=== PATIENT | female | born 1955 | race Caucasian/White ===

== ENCOUNTER 2019-08-21 19:21 | Emergency (ER) | payer MEDICARE, OTHER ==
[~2019-08-21] VITALS: Ht 160 cm; Wt 114.8 kg
[~2019-08-21 19:21] MED LIST: ALBU108A5 IN; ALPR0.5T7 PO; ASPI81CH43 PO; ATEN-60 PO; ATOR20TA50 PO; CETI10TA80 PO; CIP500T PO; DOCU100C8 PO; FUR20T PO; FURO20TA3 PO; LISI40TA PO; LOSA-39 PO; LOSA-69 PO; METO25TA5 PO; OMEP20TA PO; POTA-167 PO; SIMV-8 PO; TIOTCAP IN
[2019-08-22] MEDS ORDERED: cloNIDine HCL 0.1 MG TAB PO ONE (01:00)
[2019-08-22 01:26] LABS: Urine WBC None Seen /hpf (0 - 5)
[2019-08-22 01:36] LABS: Basophils # (auto) 0 uL; Basophils % (auto) 0.4 % (0.0-2.0); Eosinophils # (auto) 0 uL; Eosinophils % (auto) 0.5 % (0.0-7.0); Hematocrit 37.9 % (36.0-46.0); Lymphocytes # (auto) 0.4 uL; Lymphocytes % (auto) 8.8 % (10.0-50.0); Mean Corpuscular Hemoglobin 33.1 pg (28.0-32.0); Mean Corpuscular Hgb Conc. 34.4 g/dL (32.0-36.0); Mean Corpuscular Volume 96.3 fL (80.0-100.0); Monocytes # (auto) 0.8 uL; Monocytes % (auto) 17.5 % (0.0-12.0); Neutrophils # (auto) 3.3 uL; Neutrophils % (auto) 72.8 % (37.0-80.0); Platelet Count (auto) 230 10^3/uL (140-450); Red Blood Cells 3.94 10^6/uL (4.0-5.20); Red Cell Distribution Width 13.5 % (11.8-14.3); White Blood Cell 4.5 10^3/uL (4.4-10.8)
[2019-08-22 01:57] LABS: Albumin 3.4 g/dL (3.4-5.0); BUN/Creatinine Ratio 12.5; Calcium 9.2 mg/dL (8.5-10.1); Potassium 3.4 mmol/L (3.5-5.1)
[2019-08-22 02:00] LABS: Bilirubin, Total 0.4 mg/dL (0.2-1.0); Total Protein 7.6 g/dL (6.4-8.2)
[2019-08-22 02:10] VITALS: BP 148/70
[2019-08-22 02:48] LABS: Urine Specific Gravity 1.041 (1.001-1.035)
[2019-08-22 02:49] LABS: Urine Blood Normal /uL (Negative)
[2019-08-22 02:49] LABS: INR 1.03 (0.9-1.15)
[2019-08-22 02:50] LABS: Urine Bacteria FEW /hpf (None Seen)
== END 2019-08-22 03:52 | disposition home or self-care (01) ==
LOC: ER 19:21
DX: F41.1 Generalized anxiety disorder (principal); F43.0 Acute stress reaction; J44.9 Chronic obstructive pulmonary disease, unspecified; E78.5 Hyperlipidemia, unspecified; I10 Essential (primary) hypertension
CPT/HCPCS: 36415; 71045; 80053; 81001; 83605; 83880; 84484; 85025; 85610; 85730; 87040

== ENCOUNTER 2024-09-08 01:43 | Inpatient (IN) | payer MEDICARE, OTHER ==
[2024-09-08] VITALS (11 sets, daily range): BP systolic 116–137; BP diastolic 56–76; PULSE 64–93; RESP 18–20; TEMP 97.4–98; O2SAT 93–99
[~2024-09-08] VITALS: Ht 157.5 cm; Wt 120.7 kg
[~2024-09-08 01:43] MED LIST changes: -ALPR0.5T7 PO; -ATEN-60 PO; -CETI10TA80 PO; +DOCU-265 PO; -DOCU100C8 PO; -FUR20T PO; -FURO20TA3 PO; +FURO20TA4 PO; -LISI40TA PO; -LOSA-39 PO; +LOSA-534 PO; -LOSA-69 PO; -OMEP20TA PO; -POTA-167 PO; +POTA-211 PO; -SIMV-8 PO
--- NOTE | 2024-09-08 02:15 | ED.PDOC ---
SOB-HPI HPI Comments 69 year old female presents to the ED with a chief complaint of shortness of breath onset 5 days. Patient states she began experiencing cough and shortness of breath days ago, went to urgent care, was diagnosed with Bronchitis and was prescribed antibiotics as well as prednisone and an inhaler. Patient has been taking medication but has not noticed an improvement. Patient was laying down when she noticed SOB, cough and wheezing worsened. PMHx CHF, COPD, asthma, anxiety, HTN, HLD. Denies fever, chest pain, dizziness, headache, nausea, vomiting, diarrhea. No other symptoms or modifying factors present at this time. Time Seen by MD: 02:08 Primary Care Provider: AGATA Garcia notes: Medications, Allergies Information Source: Patient Mode of Arrival: Ambulatory Severity: Moderate Timing: Days Duration: Since onset PE Risk Factors: None History of: Asthma, COPD, CHF, Anxiety Prehospital treatment: Treatment Modifying Factors: Nothing Associated Signs and Symptoms: Wheeze, Cough Radiation: No Radiation If cough with SOB: Productive Past Medical History PAST MEDICAL HISTORY: Anxiety, Asthma, CHF, COPD, High Lipids, HTN Surgical History (Other): cardiac stent x2 DIRECTOR MICROBIOLOGY History: No Pertinent DIRECTOR MICROBIOLOGY History Family History Family History: Reviewed,noncontributory to illness Social History Smoker: Non-Smoker Alcohol: Denies ETOH Use Drugs: Denies Drug Use Lives In: Home Constitutional: denies: chills, diaphoresis, fatigue, fever, malaise, sweats, weakness, others EENTM: denies: blurred vision, double vision, ear bleeding, ear discharge, ear drainage, ear pain, ear ringing, eye pain, eye redness, hearing loss, mouth pain, mouth swelling, nasal discharge, nose bleeding, nose congestion, nose pain, photophobia, tearing, throat pain, throat swelling, voice changes, others Respiratory: reports: cough, shortness of breath, wheezing; denies: hemoptysis, orthopnea, SOB at rest, SOB with excertion, stridor, others Cardiovascular: denies: chest pain, dizzy spells, diaphoresis, Dyspnea on exertion, edema, irregular heart beat, left arm pain, lightheadedness, palpitations, PND, syncope, others Gastrointestinal: denies: abdomen distended, abdominal pain, blood streaked bowels, constipated, diarrhea, dysphagia, difficulty swallowing, hematemesis, melena, nausea, poor appetite, poor fluid intake, rectal bleeding, rectal pain, vomiting, others Genitourinary: denies: abnormal vagina bleeding, burning, dyspareunia, dysuria, flank pain, frequency, hematuria, incontinence, pain, , vagina discharge, urgency, others Neurological: denies: dizziness, fainting, headache, left sided numbness, left sided weakness, numbness, paresthesia, pre-existing deficit, right sided numbness, right sided weakness, seizure, speech problems, tingling, tremors, weakness, others Musculoskeletal: denies: back pain, gout, joint pain, joint swelling, muscle pain, muscle stiffness, neck pain, others Integumetry: denies: bruises, change in color, change in hair/nails, dryness, laceration, lesions, lumps, rash, wounds, others Allergic/Immunocompromised: denies: Difficulty Healing, Frequent Infections, Hives, Itching, others Hematologic/Lymphatic: denies: anemia, blood clots, easy bleeding, easy bruising, swollen glands, others Endocrine: denies: excessive hunger, excessive sweating, excessive thirst, excessive urination, flushing, intolerance to cold, intolerance to heat, unexplained weight gain, unexplained weight loss, others Psychiatric: denies: anxiety, bipolar disorder, depression, hopeless, panic disorder, schizophrenia, sleepless, suicidal, others All Other Systems: Reviewed and Negative Physical Exam General Appearance: No Apparent Distress, Obese HEENT: Other (Unremarkable) Neck: Full Range of Motion, Normal Inspection Respiratory: No Accessory Muscle Use, No Respiratory Distress, Wheezing Cardiovascular: NOT DONE Breast Exam: Deferred Gastrointestinal: Non Tender, Soft Genitalia: Deferred Pelvic: Deferred Rectal: Deferred Extremities: Normal inspection, Normal range of motion, Non-tender, No pedal edema Neurologic: Alert (Oriented x4), Normal Affect, Normal Mood, Other (Ambulatory without difficulty. No gross focal deficit.) Cerebellar Function: NOT DONE Reflexes: NOT DONE Skin: Dry, Normal Color, Warm Lymphatic: NOT DONE EKG EKG : Comments Sinus rhythm, rate 66, normal intervals, left axis deviation, low voltage precordial leads, anteroseptal and lateral T inversion with other nonspecific T changes Was a procedure done? Was a procedure done?: No Differential Dx Differential Diagnosis: Asthma, Bronchitis, CHF, COPD, Myocardial infarction, Panic Attack, Pneumonia, Pulmonary Embolism, Respiratory Distress, URI X-Ray, Labs, Meds, VS Vital Signs Date Time Temp Pulse Resp B/P (MAP) Pulse Ox O2 Delivery O2 Flow Rate FiO2 09/08/24 02:30 66 09/08/24 02:23 18 95 Room Air* 0 21 09/08/24 01:51 97.4 79 18 147/73 (97) 97 09/08/24 01:51 18 97 Room Air* 0 21 Lab Test 09/08/24 03:50 09/08/24 02:34 Range/Units Troponin I High Sensitivity < 3 L < 3 L </=34 ng/L White Blood Count 8.8 4.4-10.8 10^3/uL Red Blood Count 4.09 4.0-5.20 10^6/uL Hemoglobin 13.7 12.2-16.2 g/dL Hematocrit 40.5 36.0-46.0 % Mean Corpuscular Volume 98.9 80.0-100.0 fL Mean Corpuscular Hemoglobin 33.4 H 28.0-32.0 pg Mean Corpuscular Hemoglobin Concent 33.8 32.0-36.0 g/dL Red Cell Distribution Width 14.1 11.8-14.3 % Platelet Count 269 140-450 10^3/uL Mean Platelet Volume 7.9 6.9-10.8 fL Neutrophils (%) (Auto) 79.0 37.0-80.0 % Lymphocytes (%) (Auto) 17.2 10.0-50.0 % Monocytes (%) (Auto) 3.4 0.0-12.0 % Eosinophils (%) (Auto) 0.0 0.0-7.0 % Basophils (%) (Auto) 0.4 0.0-2.0 % Neutrophils # (Auto) 7.0 1.6-8.6 10 ^3/uL Lymphocytes # (Auto) 1.5 0.4-5.4 10 ^3/uL Monocytes # (Auto) 0.3 0-1.3 10 ^3/uL Eosinophils # (Auto) 0 0-0.8 10 ^3/uL Basophils # (Auto) 0 0-0.2 10 ^3/uL Nucleated Red Blood Cells 0.0 % Sodium Level 139 136-145 mmol/L Potassium Level 3.6 3.5-5.1 mmol/L Chloride Level 103 98-107 mmol/L Carbon Dioxide Level 27 20-31 mmol/L Anion Gap 9 5-15 Blood Urea Nitrogen 11 9-23 mg/dL Creatinine 1.09 H 0.550-1.02 mg/dL Glomerular Filtration Rate Calc 55 >90 mL/min BUN/Creatinine Ratio 10.1 10.0-20.0 Serum Glucose 126 H 74-106 mg/dL Calcium Level 10.3 8.7-10.4 mg/dL B-Type Natriuretic Peptide 49.51 0-100 pg/mL Current Medications Medications (Trade) Dose Ordered Sig/Manish Route Start Time Stop Time Status Last Admin Albuterol (Ventolin Medneb) 2.5 mg ONCE ONCE NEB 09/08/24 02:30 09/08/24 02:31 DC 09/08/24 02:23 Ipratropium [place] (Atrovent Medneb) 0.5 mg ONCE ONCE NEB 09/08/24 02:30 09/08/24 02:31 DC 09/08/24 02:22 Methylprednisolone Sodium Succinate (Solu Medrol) 125 mg ONCE ONCE IV 09/08/24 02:30 09/08/24 02:31 DC 09/08/24 02:55 Azithromycin 250 ml @ 125 mls/hr ONCE ONCE IV 09/08/24 03:45 09/08/24 05:44 09/08/24 04:11 PROCEDURE(s): CXRP - CHEST PORTABLE REASON: SOB, COUGH X 5 DAYS ORDER NUMBER(s): [id number], ACCESSION NUMBER(s): [id number] Examination: CXRP Clinical Indication: SOB, COUGH X 5 DAYS Comparison: None. Technique: Frontal radiograph of the chest was obtained. Findings: Lungs are clear and well expanded, with no pulmonary infiltrate or pleural effusion. There is no pneumothorax. The cardiomediastinal silhouette is within normal limits. No acute osseous abnormality is seen. Impression: No acute cardiopulmonary disease is seen. Electronically Signed 09/08/2024 03:06 Melodie Becker X-Ray, Labs, Meds, VS Comment 69-year-old female with a history of COPD/asthma, CHF, hypertension, CAD and prediabetes complaining of productive cough and difficulty breathing, associated with wheezing when lying down flat Vitals remarkable for BP 147/73, temperature 97.4 Exam remarkable for scattered expiratory wheezes bilaterally Rhythm strip independently interpreted by me: Sinus rhythm, rate 66, no ectopy. Chest x-ray no acute cardiopulmonary disease CBC, basic metabolic panel, BNP and troponin unremarkable. Influenza and COVID tests pending. Patient treated with the following in the ED: Albuterol 5 mg/Atrovent 0.5 mg nebulized, Solu-Medrol 125 mg IV On re-evaluation, patient states her breathing has improved, however she is uncomfortable being discharged home. She states that I can tell by my voice that as soon as I lie down I will not be able to breathe. Plan is to admit the patient for ongoing nebulizer treatments and respiratory support as needed. Time of 1ST Reevaluation: 02:38 Reevaluation 1ST: Unchanged Patient Education/Counseling: Diagnosis, Treatment, Prognosis Family Education/Counseling: No Family Present Departure 1 Departure Time of Disposition: 03:41 Impression: Primary Impression: Acute exacerbation of COPD with asthma Additional Impression: Bronchitis Disposition: 09 ADMITTED INPATIENT Admit to: Tele Condition: Guarded Critical Care Note Critical Care Time?: No Stability Stability form required: No Heart Score Heart Score: Heart Score Response (Comments) Value History N/A 0 EKG N/A 0 Age N/A 0 Risk Factors N/A 0 Troponin N/A 0 Total 0 I personally scribed for LOWELL CASTELLON MD ([email or web address]) on 09/08/24 at 02:15. Electronically submitted by Kaur Maguire ([email or web address]). LOWELL CASTELLON MD Sep 08, 2024 02:15
[2024-09-08] MEDS: IPRATROPIUM BROM 0.5 MG/2.5ML INH SOL NEB ONE (02:22)
[2024-09-08] MEDS: ALBUTEROL SULF 2.5 MG/0.5ML(0.5%) NEB SOLN NEB ONE (02:23)
--- NOTE | 2024-09-08 02:34 | ECG ---
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
[2024-09-08 02:54] LABS: Chloride 103 mmol/L (98-107); Potassium 3.6 mmol/L (3.5-5.1); Sodium 139 mmol/L (136-145)
[2024-09-08 02:55] LABS: Anion Gap 9 (5-15); Carbon Dioxide 27 mmol/L (20-31)
[2024-09-08] MEDS: methylPREDNISolone SOD SUCC 125 MG/2 ML VL IV ONE (02:55)
[2024-09-08 02:56] LABS: Calcium 10.3 mg/dL (8.7-10.4)
[2024-09-08 02:57] LABS: Basophils # (auto) 0 10 ^3/uL (0-0.2); Basophils % (auto) 0.4 % (0.0-2.0); Eosinophils # (auto) 0 10 ^3/uL (0-0.8); Hematocrit 40.5 % (36.0-46.0); Hemoglobin 13.7 g/dL (12.2-16.2); Lymphocytes # (auto) 1.5 10 ^3/uL (0.4-5.4); Lymphocytes % (auto) 17.2 % (10.0-50.0); Mean Corpuscular Hemoglobin 33.4 pg (28.0-32.0); Mean Corpuscular Hgb Conc. 33.8 g/dL (32.0-36.0); Mean Corpuscular Volume 98.9 fL (80.0-100.0); Monocytes # (auto) 0.3 10 ^3/uL (0-1.3); Monocytes % (auto) 3.4 % (0.0-12.0); Platelet Count (auto) 269 10^3/uL (140-450); Red Blood Cells 4.09 10^6/uL (4.0-5.20); Red Cell Distribution Width 14.1 % (11.8-14.3); White Blood Cell 8.8 10^3/uL (4.4-10.8)
[2024-09-08 03:00] LABS: BUN/Creatinine Ratio 10.1 (10.0-20.0); Blood Urea Nitrogen 11 mg/dL (9-23)
--- NOTE | 2024-09-08 03:08 | DVH ---
Examination: CXRP Clinical Indication: SOB, COUGH X 5 DAYS Comparison: None. Technique: Frontal radiograph of the chest was obtained. Findings: Lungs are clear and well expanded, with no pulmonary infiltrate or pleural effusion. There is no pne umothorax. The cardiomediastinal silhouette is within normal limits. No acute osseous abnormality is seen. Impression: No acute cardiopulmonary disease is seen. Electronically Signed 09/08/2024 03:06 Melodie Becker
[2024-09-08 03:24] LABS: Glucose 126 mg/dL (74-106)
[2024-09-08] MEDS: AZITHROMYCIN 500MG/ 250ML 250 ML IV ONE (04:11)
--- NOTE | 2024-09-08 06:34 | DVHHPRES ---
History of Present Illness Resident Creating Document: FRANCIS LORENZANA RESDIENT History of Present Illness This is a 69-year-old female with past medical history of COPD, sleep apnea (on CPAP during the night with 1 L of oxygen), CHF, coronary artery disease, status post PCI (put 2 stents 2 months back), hypertension, hypercholesterolemia, CKD 3A, fatty liver disease, presented to hospital with shortness of breaths since 5 days which has progressively worsened. Patient has taken antibiotic, prednisone and inhaler from urgent care for current condition which has not helped. Shor tness of breaths is associated with dry cough and wheezing. Patient denies fever, chest pain, nausea, vomiting, headache, and any recent sick contact. PMHx: COPD, sleep apnea (on CPAP during the night with 1 L of oxygen), CHF, coronary artery disease, status post PCI (put 2 stents 2 months back), hypertension, hypercholesterolemia, CKD 3A, fatty liver disease PSHx: Noncontributory Family history: Noncontributing Social history: Patient lives with the family at home, ex-smoker, denies alcohol or any other drug use Review of Systems Review of Systems General: patient denies fever, fatigue, weaknes, sweating, any recent changes in appetite and weight HEENT: No headaches, visiual changes, hearing loss, tinnitus, nasal congestion and discharge, and sore throat. Cardiovascular: Denies chest pain, palpitations, dyspnea on exertion, orthopnea, or claudication. Respiratory: Reports shortness of breath, cough and wheezing Gastrointestinal: Denies nausea, vomiting, dysphagia, odynophagia, heartburn, abdominal pain, flatulence, bloating, diarrhea, constipation, change in stool, or blood in stool. Genitourinary: No dysuria, hematuria, discharge, frequency, urgency, nocturia, incontinence, and urinary retention. Endocrine: No heat or cold intolerance, polydipsia, polyuria, and polyphagia. Neurological: No dizziness, extremity weakness and numbness, tremors, gait disturbance, seizures, and memory impairment. Psychiatric: Denies depression, anxiety,or insomnia. Musculoskeletal: Denies neck pain, stiffness and swelling, back pain, muscle weakness, joint pain, stiffness, swelling, or limited range of motion. Allergies: Coded Allergies: Iodine (Verified Allergy, Unknown, 08/18/19) Medications Current Medications Medications Dose Ordered Sig/Manish Route Start Time Stop Time Status Last Admin Dose Admin Azithromycin 250 ml @ 125 mls/hr DAILY IV 09/08/24 10:00 UNV Methylprednisolone Sodium Succinate 40 mg BID IV 09/08/24 10:00 UNV Albuterol 2.5 mg Q6HR NEB 09/08/24 12:00 UNV Ipratropium [place] 0.5 mg Q6HR NEB 09/08/24 12:00 UNV Aspirin 81 mg DAILY PO 09/08/24 10:00 UNV Atorvastatin Calcium 40 mg HS PO 09/08/24 22:00 UNV Amlodipine Besylate 10 mg DAILY PO 09/08/24 10:00 UNV Furosemide 40 mg DAILY IV 09/08/24 10:00 UNV Pantoprazole Sodium 40 mg DAILY@0600 PO 09/09/24 06:00 UNV Exam Vital Signs Vital Signs Date Time Temp Pulse Resp B/P (MAP) Pulse Ox O2 Delivery O2 Flow Rate FiO2 09/08/24 02:30 66 09/08/24 02:23 18 95 Room Air* 0 21 09/08/24 01:51 97.4 147/73 (97) Exam General Appearance: Alert, Oriented X3, Cooperative, No acute distress HEENT: Atraumatic, PERRLA, EOMI, Mucous membrane moist/pink Respiratory: Bilateral rhonchi Cardiovascular: Regular rate, Normal S1, Normal S2, No murmurs, no chest wall tenderness Abdominal: Normal bowel sounds, Soft, No tenderness, No hepatospenomegaly, No masses Extremities: No clubbing, No cyanosis, No edema, Normal pulses, No tenderness/swelling Skin: No rashes, No breakdown, No significant lesion Neuro: Normal gait, Normal speech, Strength at 5/5 X4 ext, Normal tone, Sensation intact, Cranial nerves 3-12 NL, Reflexes 2+ Psych/Mental Status: Mental status NL, Mood NL Labs/Xrays Labs Test 09/08/24 03:50 09/08/24 02:34 Range/Units Troponin I High Sensitivity < 3 L </=34 ng/L White Blood Count 8.8 4.4-10.8 10^3/uL Red Blood Count 4.09 4.0-5.20 10^6/uL Hemoglobin 13.7 12.2-16.2 g/dL Hematocrit 40.5 36.0-46.0 % Mean Corpuscular Volume 98.9 80.0-100.0 fL Mean Corpuscular Hemoglobin 33.4 H 28.0-32.0 pg Mean Corpuscular Hemoglobin Concent 33.8 32.0-36.0 g/dL Red Cell Distribution Width 14.1 11.8-14.3 % Platelet Count 269 140-450 10^3/uL Mean Platelet Volume 7.9 6.9-10.8 fL Neutrophils (%) (Auto) 79.0 37.0-80.0 % Lymphocytes (%) (Auto) 17.2 10.0-50.0 % Monocytes (%) (Auto) 3.4 0.0-12.0 % Eosinophils (%) (Auto) 0.0 0.0-7.0 % Basophils (%) (Auto) 0.4 0.0-2.0 % Neutrophils # (Auto) 7.0 1.6-8.6 10 ^3/uL Lymphocytes # (Auto) 1.5 0.4-5.4 10 ^3/uL Monocytes # (Auto) 0.3 0-1.3 10 ^3/uL Eosinophils # (Auto) 0 0-0.8 10 ^3/uL Basophils # (Auto) 0 0-0.2 10 ^3/uL Nucleated Red Blood Cells 0.0 % Sodium Level 139 136-145 mmol/L Potassium Level 3.6 3.5-5.1 mmol/L Chloride Level 103 98-107 mmol/L Carbon Dioxide Level 27 20-31 mmol/L Anion Gap 9 5-15 Blood Urea Nitrogen 11 9-23 mg/dL Creatinine 1.09 H 0.550-1.02 mg/dL Glomerular Filtration Rate Calc 55 >90 mL/min BUN/Creatinine Ratio 10.1 10.0-20.0 Serum Glucose 126 H 74-106 mg/dL Calcium Level 10.3 8.7-10.4 mg/dL B-Type Natriuretic Peptide 49.51 0-100 pg/mL Assessment/Plan Assessment/Plan Acute COPD exacerbation Acute pneumonitis Sleep apnea check influenza type a, B, MRSA naris Methylprednisolone 40 mg b.i.d. Azithromycin Breathing treatment CPAP during the night Possible Acute on chronic systolic heart failure Hypertension History of coronary artery disease, put 2 stent, 2 months back Patient has bilateral grade 2 pedal edema Echocardiogram from 2019, shows some fraction 70% Check echo Lasix 40 mg daily Continue losartan Continue aspirin and clopidogrel CKD grade 3A Dyslipidemia Continue atorvastatin Next DIET: Cardiac diet DVT PROPHYLAXIS: Lovenox GI PROPHYLAXIS:: Protonix CODE STATUS: Left care discussed for more than 21 minutes, full code DISPOSITION: Med/surg Patient's status discussed with patient. Case discussed with Dr. Ceja. Plan discussed with: Patient, Other (RN) My Orders Orders - FRANCIS LORENZANA RESDITERESA Procedure Category Date Status Time Admit ADMIT 09/08/24 Transmitted 06:18 Stat Ekg For Chest BECKY 09/08/24 In Process Pain 06:18 Rapid Influenza A&B LAB 09/08/24 Logged 06:19 Mrsa Screen YESIKA 09/08/24 Logged 06:19 Echo 2d Mode Cardiac US 09/08/24 Logged DOP 06:19 Methylprednisolone PHA 09/08/24 In Process Sod Succ (Solu Medrol 10:00 Albuterol Medneb PHA 09/08/24 In Process (Ventolin Medneb) 12:00 Ipratropium Medneb PHA 09/08/24 In Process (Atrovent Medneb) 12:00 Aspirin Tablet PHA 09/08/24 In Process 10:00 Atorvastatin (Lipitor) PHA 09/08/24 In Process 22:00 Amlodipine Tablet PHA 09/08/24 In Process (Norvasc Tablet) 10:00 Furosemide Injection PHA 09/08/24 In Process (Lasix Injection) 10:00 Pantoprazole Tablet PHA 09/09/24 In Process (Protonix Tablet) 06:00 Azithromycin 500mg/ PHA 09/09/24 In Process 250ml (Zithromax 50 10:00 Clopidogrel Bisulfate PHA 09/08/24 Transmitted (Plavix) 10:00 Losartan Tablet PHA 09/08/24 Transmitted (Cozaar Tablet) 10:00 Date of Service: Sep 08, 2024 Billing Provider: ABDOULAYE CEJA MD Common Visit Codes: [id number] INP/OBS CARE (HIGH) Secondary Visit Codes: [id number] CARE PLAN 30 MINUTES FRANCIS LORENZANA RESDIENT Sep 08, 2024 06:34 ABDOULAYE CEJA MD Sep 08, 2024 11:42
[2024-09-08] MEDS: PANTOPRAZOLE 40 MG TAB PO ONE (06:39)
[2024-09-08] MEDS: ATORVASTATIN 20 MG TAB PO ONE (06:39)
[2024-09-08] MEDS: methylPREDNISolone SOD SUCC 40 MG/ML VL IV SCH (06:45)
[2024-09-08 09:10] LABS: Rapid Influenza A Negative (Negative); Rapid Influenza B Negative (Negative)
[2024-09-08 09:13] LABS: COVID19 ANTIGEN SOFIA FIA POSITIVE (NEGATIVE)
[2024-09-08] MEDS ORDERED: methylPREDNISolone SOD SUCC 40 MG/ML VL IV SCH (10:00)
[2024-09-08] MEDS ORDERED: amLODIPine BESYLATE 5 MG TAB PO SCH (10:00)
[2024-09-08] MEDS: CLOPIDOGREL BISULFATE 75 MG TAB PO SCH (10:16)
[2024-09-08] MEDS: ASPirin 81 mg TAB PO SCH (10:17)
[2024-09-08] MEDS: POTASSIUM CHLORIDE 8 MEQ TAB PO SCH (10:18)
[2024-09-08] MEDS: FUROSEMIDE 40 MG/4 ML VIAL IV SCH (10:18)
[2024-09-08] MEDS: LOSARTAN POTASSIUM 50 MG TAB PO SCH (10:19)
[2024-09-08] MEDS: ALBUTEROL SULF 2.5 MG/0.5ML(0.5%) NEB SOLN NEB SCH (11:46)
[2024-09-08] MEDS: IPRATROPIUM BROM 0.5 MG/2.5ML INH SOL NEB SCH (11:46)
--- NOTE | 2024-09-08 11:50 | DVHPN2 ---
Progress Note Date Seen: Sep 08, 2024 Medical Necessity Reason Pt with a Central, PICC or Fol: No Subjective Patient reports: No new complaints Review of Systems: HEENT:Normal, CVS:Normal, RESPIRATORY:Normal, GI:Normal, :Normal, MSK:Normal, NEURO:Normal Objective vital signs Vital Sign Date Time Temp Pulse Resp B/P (MAP) Pulse Ox O2 Delivery O2 Flow Rate FiO2 09/08/24 10:19 155/72 09/08/24 10:12 97.9 72 20 94 97.9 09/08/24 10:12 Room Air 09/08/24 08:22 0 21 medications Current Medications Medications Dose Ordered Sig/Manish Route Start Time Stop Time Status Last Admin Dose Admin Azithromycin 250 ml @ 125 mls/hr DAILY IV 09/09/24 10:00 Albuterol 2.5 mg Q6HR NEB 09/08/24 12:00 09/08/24 11:46 2.5 MG Ipratropium [place] 0.5 mg Q6HR NEB 09/08/24 12:00 09/08/24 11:46 0.5 MG Aspirin 81 mg DAILY PO 09/08/24 10:00 09/08/24 10:17 81 MG Atorvastatin Calcium 40 mg HS PO 09/08/24 22:00 Furosemide 40 mg DAILY IV 09/08/24 10:00 09/08/24 10:18 40 MG Pantoprazole Sodium 40 mg DAILY@0600 PO 09/09/24 06:00 Clopidogrel Bisulfate 75 mg DAILY PO 09/08/24 10:00 09/08/24 10:16 75 MG Losartan Potassium 100 mg DAILY PO 09/08/24 10:00 09/08/24 10:19 100 MG Potassium Chloride 16 meq DAILY PO 09/08/24 10:00 09/08/24 10:18 16 MEQ Methylprednisolone Sodium Succinate 40 mg BID IV 09/08/24 06:45 09/08/24 06:45 40 MG Examination: GENERAL:Normal, HEENT:Normal, NECK:Normal, LUNGS:Normal, CVS:Normal, ABDOMEN:Normal, MSK:Normal, SKIN:Normal, NEURO:Normal, :Normal laboratory and microbiology Laboratory Tests 09/08/24 02:34 Test 09/08/24 02:34 Range/Units Serum Glucose 126 H 74-106 mg/dL Problem List/Assessment/Plan Problem List/Assessment/Plan #1 covid 19 pneumonia: cont meds #2 copd with exacerbation: steroids #3 acute on chronic diastolic heart failure: lasix iv #4 morbid obesity #5 sleep apnea #6 acute on chronic resp failure #7 cad s/p stent #8 htn advance care planning- full code- time spent 19 mins Plan discussed with: Patient Date of Service: Sep 08, 2024 Billing Provider: MALINDA SHER MD Common Visit Codes: [id number] INP/OBS CARE(HIGH) Secondary Visit Codes: 08243-[id number] CARE PLAN 30 MINUTES MALINDA SHER MD Sep 08, 2024 11:50
[2024-09-08] MEDS ORDERED: IPRATROPIUM BROM 0.5 MG/2.5ML INH SOL NEB SCH (12:00)
[2024-09-08] MEDS ORDERED: ALBUTEROL SULF 2.5 MG/0.5ML(0.5%) NEB SOLN NEB SCH (12:00)
[2024-09-08] MEDS ORDERED: ACETAMINOPHEN 325 MG TAB PO PRN (12:00)
[2024-09-08] MEDS: HYDROcodone-ACET 5/325MG TAB PO PRN (12:05)
[2024-09-08 12:41] LABS: Urine Bacteria None Seen /hpf (None Seen)
[2024-09-08 12:59] LABS: Urine Blood Negative /uL (Negative); Urine Clarity Clear (Clear); Urine Color Light-Yellow (Yellow); Urine Hyaline Cast MOD /lpf (0 - 2); Urine Protein, UAD Negative (Negative); Urine Squamous Epithelial Cell FEW /hpf (<5); Urine Urobilinogen Normal (Negative); Urine WBC 1 /hpf (0 - 5)
[2024-09-08] MEDS ORDERED: PANT40TA2 PO (16:45)
[2024-09-08] MEDS ORDERED: CLOP75TA28 PO (16:45)
[2024-09-08] MEDS ORDERED: LOSA-535 PO (16:45)
[2024-09-08] MEDS: ATORVASTATIN 20 MG TAB PO SCH (20:28)
[2024-09-08] MEDS: guaiFENesin-DM 100/10mg/5ml SYR PO PRN (22:10)
[2024-09-09] VITALS (11 sets, daily range): BP systolic 103–157; BP diastolic 51–74; PULSE 58–93; RESP 18–19; TEMP 97.6–98.2; O2SAT 90–98
[2024-09-09] MEDS: PANTOPRAZOLE 40 MG TAB PO SCH (05:34)
--- NOTE | 2024-09-09 06:11 | DVHSR ---
APPROVED REPORT EXAM: Two-dimensional and M-mode echocardiogram with Doppler and color Doppler. Blood Pressure: 136/76 mmHg INDICATION Heart Failure RISK FACTORS Height: 5' 2", Weight: 261 DIMENSIONS LVDd4.6 (3.8-5.7cm)LA (2D)4.0 (1.9-4.0cm)Aortic Root3.1 (2.0-3.7cm) LVDs2.9 (2.5-4.0cm)LA (MM) (1.9-4.0cm)Aortic Cusp Exc1.7 (1.5-2.0cm) EF (%) 65.0 (55-70%)Rt. Atrium4.4 (1.9-4.0cm)Asc. Aorta cm IVSd1.2 (0.7-1.1cm)RV (D) (1.8-2.4cm) PWd1.2 (0.7-1.1cm) Mitral Valve MitralMitral Stenosis E wave1.20m/sMV Mean GR.mmHg A wave1.10m/sMV Peak GR.mmHg E/A ratio1.12D MVAcm2 Aortic Valve Aortic ValveAortic Stenosis V10.90m/Jens Mean GR.5mmHg V21.70m/Jens Peak GR.12mmHg LVOT Diameter2.0 (1.8-2.4cm)Doppler AVA1.66cm2 Pulmonic Valve V20.70m/s LEFT VENTRICLE The left ventricle is of normal size. Wall thickness is mildly increased. Ejection fraction is norm al and is estimated at 60%. There is no gross wall motion abnormalities. Diastolic function is inde terminate. E to E prime ratio is in the indeterminate range. RIGHT VENTRICLE The right ventricle is not well visualized. It is probably mildly dilated in size. Systolic functio n appears to be normal. ATRIA The left atrium was of normal size. Right atrium is probably mildly dilated in size. MITRAL VALVE Normal structure and function. No significant mitral regurgitation. PULMONIC VALVE Likely normal. TRICUSPID VALVE Not well visualized. No significant tricuspid regurgitation. PA systolic pressure is not adequately estimated. AORTIC VALVE Normal in structure and function. GREAT VESSELS Aortic root is of normal size. PERICARDIAL EFFUSION There is small circumferential pericardial effusion. IVC is of normal size and collapses normally wi th inspiration. Other Information Quality : Technically LimitedRhythm : Technically limited study due to body habitus. Conclusion Normal left ventricular size and systolic function. Ejection fraction is estimated at 60%. Mild concentric left ventricular hypertrophy. The right ventricle is likely mildly dilated in size with normal systolic function. No hemodynamically significant valve disease. PA systolic pressure is not adequately estimated. Small circumferential pericardial effusion.
[2024-09-09 06:23] LABS: Basophils # (auto) 0 10 ^3/uL (0-0.2); Eosinophils # (auto) 0 10 ^3/uL (0-0.8); Hematocrit 35.6 % (36.0-46.0); Hemoglobin 12.3 g/dL (12.2-16.2); Lymphocytes # (auto) 0.8 10 ^3/uL (0.4-5.4); Lymphocytes % (auto) 10.1 % (10.0-50.0); Mean Corpuscular Hemoglobin 33.9 pg (28.0-32.0); Mean Corpuscular Hgb Conc. 34.5 g/dL (32.0-36.0); Mean Corpuscular Volume 98.3 fL (80.0-100.0); Monocytes # (auto) 0.6 10 ^3/uL (0-1.3); Monocytes % (auto) 7.6 % (0.0-12.0); Neutrophils # (auto) 6.8 10 ^3/uL (1.6-8.6); Neutrophils % (auto) 82.3 % (37.0-80.0); Nucleated Red Blood Cells % 0.1 %; Platelet Count (auto) 235 10^3/uL (140-450); Red Blood Cells 3.63 10^6/uL (4.0-5.20); Red Cell Distribution Width 13.7 % (11.8-14.3); White Blood Cell 8.3 10^3/uL (4.4-10.8)
--- NOTE | 2024-09-09 06:23 | DVH ---
CHEST RADIOGRAPH Indication: CHF Technique: Single frontal view of the chest was obtained Comparison: XY CHEST PORTABLE on DOS: 09/08/24 FINDINGS: Lines and Tubes: None Lungs: No focal consolidation. Pleura: No effusion. No pneumothorax. Cardiomediastinal contours: Cardiomegaly. Bones: No acute osseous abnormality. IMPRESSION: No acute cardiopulmonary disease.
[2024-09-09 06:56] LABS: Albumin 3.8 g/dL (3.2-4.8); Anion Gap 10 (5-15); BUN/Creatinine Ratio 17.4 (10.0-20.0); Bilirubin, Total 0.6 mg/dL (0.2-1.0); Blood Urea Nitrogen 19 mg/dL (9-23); Calcium 9.8 mg/dL (8.7-10.4); Carbon Dioxide 27 mmol/L (20-31); Chloride 102 mmol/L (98-107); Potassium 3.9 mmol/L (3.5-5.1); Sodium 139 mmol/L (136-145); Total Protein 6.2 g/dL (5.7-8.2)
[2024-09-09 07:02] LABS: Alanine Aminotransferase 44 U/L (7-40); Alkaline Phosphatase 131 U/L (46-116); Aspartate Aminotransferase 54 U/L (13-40); Glucose 107 mg/dL (74-106)
[2024-09-09] MEDS: AZITHROMYCIN 500MG/ 250ML 250 ML IV SCH (09:52)
[2024-09-09] MEDS: ALBUTEROL SULF HFA 90MCG INH 200DOSE IN PRN (10:41)
--- NOTE | 2024-09-09 12:23 | DVHPN2 ---
Reviewed: H&P, Labs, Medications Changes from previous H/P or p: No Changes General: Per HPI Objective Vitals Vital Signs Date Time Temp Pulse Resp B/P (MAP) Pulse Ox O2 Delivery O2 Flow Rate FiO2 09/09/24 11:26 97 Room Air 09/09/24 10:41 0 21 09/09/24 10:41 58 18 09/09/24 09:54 148/67 09/09/24 09:00 97.6 97.6 Intake/Output Intake and Output 09/09/24 06:59 Intake Total 850 ml Balance 850 ml Intake Oral 850 ml # Voids 2 Medications Current Medications Medications Dose Ordered Sig/Manish Route Start Time Stop Time Status Last Admin Dose Admin Azithromycin 250 ml @ 125 mls/hr DAILY IV 09/09/24 10:00 09/09/24 09:52 125 MLS/HR Aspirin 81 mg DAILY PO 09/08/24 10:00 09/09/24 09:53 81 MG Atorvastatin Calcium 40 mg HS PO 09/08/24 22:00 09/08/24 20:28 40 MG Furosemide 40 mg DAILY IV 09/08/24 10:00 09/09/24 09:54 40 MG Pantoprazole Sodium 40 mg DAILY@0600 PO 09/09/24 06:00 09/09/24 05:34 40 MG Clopidogrel Bisulfate 75 mg DAILY PO 09/08/24 10:00 09/09/24 09:53 75 MG Losartan Potassium 100 mg DAILY PO 09/08/24 10:00 09/09/24 09:53 100 MG Potassium Chloride 16 meq DAILY PO 09/08/24 10:00 09/09/24 12:17 16 MEQ Methylprednisolone Sodium Succinate 40 mg BID IV 09/08/24 06:45 09/09/24 09:52 40 MG Acetaminophen 650 mg Q6HP PRN PO 09/08/24 12:00 Acetaminophen/ Hydrocodone Bitart 1 tab Q6HPRN PRN PO 09/08/24 12:00 09/09/24 12:17 1 TAB Albuterol 90 mcg TID PRN IN 09/08/24 12:15 09/09/24 10:41 90 MCG Guaifenesin/ Dextromethorphan 10 ml Q6HR PRN PO 09/08/24 22:00 09/09/24 10:39 10 ML Laboratory Results Laboratory Tests 09/09/24 05:01 Chemistry Test 09/09/24 05:01 Albumin 3.8 g/dL (3.2-4.8) Calcium Level 9.8 mg/dL (8.7-10.4) Total Protein 6.2 g/dL (5.7-8.2) LFT Test 09/09/24 05:01 Alanine Aminotransferase (ALT) 44 U/L (7-40) H Alkaline Phosphatase 131 U/L (46-116) H Aspartate Amino Transferase (AST) 54 U/L (13-40) H Total Bilirubin 0.6 mg/dL (0.2-1.0) Urinalysis Test 09/08/24 11:30 Urine Color Light-yellow (Yellow) Urine Clarity Clear (Clear) Urine pH 7.0 (5.0-9.0) Urine Specific [place] 1.010 (1.001-1.035) Urine Protein Negative (Negative) Urine Ketones Negative (Negative) Urine Blood Negative /uL (Negative) Urine Nitrite Negative (Negative) Urine Bilirubin Negative (Negative) Urine Urobilinogen Normal mg/dL (Negative) Urine Leukocyte Esterase Negative /uL (Negative) Urine RBC <1 /hpf (0 - 4) Urine WBC 1 /hpf (0 - 5) Urine Squamous Epithelial Cells Few /hpf (<5) Urine Bacteria None seen /hpf (None Seen) Urine Hyaline Casts Mod /lpf (0 - 2) Urine Glucose Normal mg/dL (Normal) Assessment/Plan Assessment/Plan #1 covid 19 pneumonia: cont meds #2 copd with exacerbation: steroids #3 acute on chronic diastolic heart failure: lasix iv #4 morbid obesity #5 sleep apnea #6 acute on chronic resp failure #7 cad s/p stent #8 htn 09/09/2024: improving, still coughing, able to walk but still dyspneic. will closely monitor for now Plan discussed with: Patient Date of Service: Sep 09, 2024 Billing Provider: ANIKA RIOS DO Common Visit Codes: [id number] INP/OBS CARE(HIGH) ANIKA RIOS DO Sep 09, 2024 12:23
[2024-09-09] MEDS ORDERED: EZET10TA22 PO (15:56)
[2024-09-09] MEDS ORDERED: ESCI5TAB PO (15:56)
[2024-09-09] MEDS ORDERED: CETI-176 PO (15:56)
[2024-09-09] MEDS ORDERED: TIRZ7.5I2 SC (15:56)
[2024-09-09] MEDS ORDERED: OMEP1CAP70 PO (15:56)
[2024-09-09] MEDS ORDERED: FLUT1AER6 IN (15:56)
[2024-09-09] MEDS ORDERED: ATOR80TA PO (15:59)
[2024-09-09] MEDS ORDERED: FURO40TA4 PO (15:59)
[2024-09-09] MEDS ORDERED: POTA-228 PO (15:59)
--- NOTE | 2024-09-09 22:53 | DVHINCON2 ---
Date of service: Sep 09, 2024 Referring Physician Anika Rios DO Reason for Consultation Hypoxia, AE COPD, and COVID-19 History of Present Illness A 69-year-old woman with past medical history of COPD, sleep apnea (on CPAP at night with 1 L oxygen), CHF, coronary artery disease, s/p PCI with 2 stents in 06/2024, hypertension, hypercholesterolemia, CKD stage 3A, and fatty liver disease, who presented to ED on 09/08/24 with shortness of breath x5 days which progressively worsened. Patient took antibiotic, prednisone and inhaler from urgent care without benefit. She c/o shortness of breath associated with dry cough and wheezing. Patient denied fever, chest pain, nausea, vomiting, headache, or any recent sick contact. Patient was admitted for further care and pulmonary consultation is requested for evaluation and management of hypoxia, AE COPD, and COVID-19. Review of Systems: 14-point review of systems negative unless otherwise noted above. Past Medical History: COPD, sleep apnea (on CPAP during the night with 1 L of oxygen), CHF, coronary artery disease, hypertension, hypercholesterolemia, CKD stage 3A, fatty liver disease. Past Surgical History: Status post PCI, received 2 stents in 06/2024. Medications: Reviewed. Allergies: Iodine. Family History: COPD. Social History: Former smoker. No alcohol or illicit drug use. Family History: Chronic obstructive pulmonary disease G8 MOTHER Allergies: Coded Allergies: Iodine (Verified Allergy, Unknown, 08/18/19) Home Meds Active Scripts Methylprednisolone (Medrol Dosepak) 4 Mg Doug, 4 MG PO UD, #21 TAB UAD Prov:ANIKA RIOS DO 09/10/24 Azithromycin (Azithromycin) 250 Mg Tab, 250 MG PO DAILY MDD 500 for 5 Days, #6 TAB 0 Refills 2 TABLETS ORALLY ON DAY ONE, THEN 1 TABLET ORALLY DAILY FOR 4 DAYS Prov:ANIKA RIOS DO 09/10/24 Metoprolol Tartrate (Metoprolol Tartrate) 25 Mg Tab, 1 TAB PO BID, #180 TAB 1 Refill Prov:MANDO EASTMAN MD 08/21/19 Aspirin (Asa) 81 Mg Ch, 81 MG PO DAILY, #30 TAB.CHEW Prov:MANDO EASTMAN MD 08/21/19 Albuterol Sulfate (Albuterol Sulfate Hfa) 108 Mcg/Act Aer, 2 PUFF IN Q6HP PRN, #10 AER Prov:MANDO EASTMAN MD 08/21/19 Reported Medications Potassium Chloride (Potassium Chloride ER) 10 Meq Tab, 10 MEQ PO BIDWM, TAB 09/09/24 Furosemide (Furosemide) 40 Mg Tab, 40 MG PO BID, TAB 09/09/24 Atorvastatin Calcium (Lipitor) 80 Mg Tab, 80 MG PO DAILY, TAB 09/09/24 Fluticasone-Salmeterol (Wixela Inhub 250-50 Mcg/Dose) 1 Aer Aer, 1 AER IN BID, AER 09/09/24 Cetirizine Hcl (Zyrtec Allergy) 10 Mg Tab, 10 MG PO DAILY, TAB 09/09/24 Ezetimibe (Zetia) 10 Mg Tab, 10 MG PO DAILY, TAB 09/09/24 Omeprazole (Omeprazole Dr) 20 Mg Cap, 20 MG PO DAILY, CAP 09/09/24 Escitalopram Oxalate (Lexapro) 5 Mg Tab, 15 MG PO DAILY, TAB 09/09/24 Tirzepatide (Zepbound) 7.5 Mg/0.5 Ml Inj, 7.5 MG SC QWEEKLY, INJ 09/09/24 Losartan Potassium (Losartan Potassium) 100 Mg Tab, 100 MG PO DAILY for 30 Days, MG 09/08/24 Clopidogrel Bisulfate (Plavix) 75 Mg Tab, 1 TAB PO DAILY, #90 TAB 1 Refill 09/08/24 Current Medications Current Medications Medications (Trade) Dose Ordered Sig/Manish Route PRN Reason Start Time Stop Time Status Last Admin Azithromycin 250 ml @ 125 mls/hr DAILY IV 09/09/24 10:00 09/09/24 09:52 Pantoprazole Sodium (Protonix Tablet) 40 mg DAILY@0600 PO 09/09/24 06:00 09/09/24 05:34 Vital Signs Vital Signs Date Time Temp Pulse Resp B/P (MAP) Pulse Ox O2 Delivery O2 Flow Rate FiO2 09/09/24 22:00 98.1 63 18 135/60 (85) 90 98.1 09/09/24 20:24 Room Air 0.0 09/09/24 20:24 21 Physical Exam Gen.: Patient lying in bed in no apparent distress. Breathing on room air. Head: Normocephalic, atraumatic. Eyes: EOMI/PERRLA. Ears: Normal hearing. Normal anatomy. Neck/trachea: Trachea midline, supple. Nose: Normal external anatomy. Mouth: Moist mucous membranes. Chest: Decreased air entry bilaterally. No wheezing or rhonchi. Cardiovascular: Positive S1, positive S2. Regular rate and rhythm. Abdomen: Positive bowel sounds in all 4 quadrants. Soft, non-tender, non- distended. : Deferred. Rectal: Deferred. Skin: Warm, dry. Intact. Extremities: 2+ radial pulses bilaterally. No lower extremity edema. Neuro: Awake, alert, oriented x3. No gross motor or sensory deficits. Cranial nerves II through XII intact. Gait not assessed. Labs/Diagnostic Data Labs Test 09/09/24 05:01 09/08/24 11:30 09/08/24 07:37 09/08/24 03:50 Range/Units White Blood Count 8.3 4.4-10.8 10^3/uL Red Blood Count 3.63 L 4.0-5.20 10^6/uL Hemoglobin 12.3 12.2-16.2 g/dL Hematocrit 35.6 #L 36.0-46.0 % Mean Corpuscular Volume 98.3 80.0-100.0 fL Mean Corpuscular Hemoglobin 33.9 H 28.0-32.0 pg Mean Corpuscular Hemoglobin Concent 34.5 32.0-36.0 g/dL Red Cell Distribution Width 13.7 11.8-14.3 % Platelet Count 235 140-450 10^3/uL Mean Platelet Volume 8.3 6.9-10.8 fL Neutrophils (%) (Auto) 82.3 H 37.0-80.0 % Lymphocytes (%) (Auto) 10.1 10.0-50.0 % Monocytes (%) (Auto) 7.6 0.0-12.0 % Eosinophils (%) (Auto) 0.0 0.0-7.0 % Basophils (%) (Auto) 0.0 0.0-2.0 % Neutrophils # (Auto) 6.8 1.6-8.6 10 ^3/uL Lymphocytes # (Auto) 0.8 0.4-5.4 10 ^3/uL Monocytes # (Auto) 0.6 0-1.3 10 ^3/uL Eosinophils # (Auto) 0 0-0.8 10 ^3/uL Basophils # (Auto) 0 0-0.2 10 ^3/uL Nucleated Red Blood Cells 0.1 % Sodium Level 139 136-145 mmol/L Potassium Level 3.9 3.5-5.1 mmol/L Chloride Level 102 98-107 mmol/L Carbon Dioxide Level 27 20-31 mmol/L Anion Gap 10 5-15 Blood Urea Nitrogen 19 9-23 mg/dL Creatinine 1.09 H 0.550-1.02 mg/dL Glomerular Filtration Rate Calc 55 >90 mL/min BUN/Creatinine Ratio 17.4 10.0-20.0 Serum Glucose 107 H 74-106 mg/dL Calcium Level 9.8 8.7-10.4 mg/dL Total Bilirubin 0.6 0.2-1.0 mg/dL Aspartate Amino Transferase (AST) 54 H 13-40 U/L Alanine Aminotransferase (ALT) 44 H 7-40 U/L Alkaline Phosphatase 131 H 46-116 U/L Total Protein 6.2 5.7-8.2 g/dL Albumin 3.8 3.2-4.8 g/dL Urine Color Light-yellow Yellow Urine Clarity Clear Clear Urine pH 7.0 5.0-9.0 Urine Specific [place] 1.010 1.001-1.035 Urine Protein Negative Negative Urine Ketones Negative Negative Urine Blood Negative Negative /uL Urine Nitrite Negative Negative Urine Bilirubin Negative Negative Urine Urobilinogen Normal Negative mg/dL Urine Leukocyte Esterase Negative Negative /uL Urine RBC <1 0 - 4 /hpf Urine WBC 1 0 - 5 /hpf Urine Squamous Epithelial Cells Few <5 /hpf Urine Bacteria None seen None Seen /hpf Urine Hyaline Casts Mod 0 - 2 /lpf Urine Glucose Normal Normal mg/dL Influenza Type A Antigen Negative Negative Influenza Type B Antigen Negative Negative SARS-CoV-2 Antigen (Rapid) Positive NEGATIVE Troponin I High Sensitivity < 3 L </=34 ng/L Test 09/08/24 02:34 Range/Units B-Type Natriuretic Peptide 49.51 0-100 pg/mL Assessment Impression: Hypoxia, resolved COPD exacerbation COVID-19 Hx of nicotine dependence Obstructive sleep apnea Morbid obesity, BMI 48.7 Plan: Supplemental oxygen PRN Titrate to keep O2 sats above 92%. Chest x-ray reviewed, demonstrated no acute opacities, pleural effusion or pneumothorax. Continue bronchodilators. Continue antibiotics IV steroids Antitussive PRN Incentive spirometry Monitor renal function. Monitor electrolytes. Supplement as necessary. Monitor ins and outs. GI prophylaxis- Protonix DVT prophylaxis. Prognosis: Poor given patient's multiple co-morbidities. Rest of plan per hospitalist and other consultants. Thank you, Dr. Rios, for allowing me to participate in this patient's care. Further recommendations will depend on the patient's clinical course. Please do not hesitate to contact me if you have any questions or concerns. This medical document was created using an electronic medical record system with [employer] dictation system. Although these documentations are being carefully reviewed, there may still be some phonetic and typographical changes. The errors are purely typographical, due to imperfection on the software program, and do not reflect any compromise in the patient's medical care. Plan discussed with: Patient, Other (RICARDO Galvez/Dr. Rios) BETHANY RICE MD Sep 09, 2024 22:53
[2024-09-10 01:00] VITALS: BP 125/58; PULSE 60; RESP 18; TEMP 98.1; O2SAT 91
[2024-09-10 05:00] VITALS: BP 109/45; PULSE 59; RESP 18; TEMP 98.6; O2SAT 92
[2024-09-10 09:00] VITALS: BP 120/47; PULSE 62; RESP 18; TEMP 97.7; O2SAT 93
[2024-09-10 10:15] VITALS: PULSE 60; RESP 18; O2SAT 95
[2024-09-10] MEDS ORDERED: METH4PAK PO (12:00)
[2024-09-10] MEDS ORDERED: AZIT-43 PO (12:00)
--- NOTE | 2024-09-10 12:01 | DVHDS2 ---
Discharge Summary Date of Admission Sep 08, 2024 at 06:18 Date of Discharge: Sep 10, 2024 Labs/Diagnostic Data: Laboratory Results Test 09/09/24 05:01 09/08/24 11:30 09/08/24 07:37 09/08/24 03:50 White Blood Count 8.3 10^3/uL (4.4-10.8) Red Blood Count 3.63 10^6/uL (4.0-5.20) Hemoglobin 12.3 g/dL (12.2-16.2) Hematocrit 35.6 % (36.0-46.0) Mean Corpuscular Volume 98.3 fL (80.0-100.0) Mean Corpuscular Hemoglobin 33.9 pg (28.0-32.0) Mean Corpuscular Hemoglobin Concent 34.5 g/dL (32.0-36.0) Red Cell Distribution Width 13.7 % (11.8-14.3) Platelet Count 235 10^3/uL (140-450) Mean Platelet Volume 8.3 fL (6.9-10.8) Neutrophils (%) (Auto) 82.3 % (37.0-80.0) Lymphocytes (%) (Auto) 10.1 % (10.0-50.0) Monocytes (%) (Auto) 7.6 % (0.0-12.0) Eosinophils (%) (Auto) 0.0 % (0.0-7.0) Basophils (%) (Auto) 0.0 % (0.0-2.0) Neutrophils # (Auto) 6.8 10 ^3/uL (1.6-8.6) Lymphocytes # (Auto) 0.8 10 ^3/uL (0.4-5.4) Monocytes # (Auto) 0.6 10 ^3/uL (0-1.3) Eosinophils # (Auto) 0 10 ^3/uL (0-0.8) Basophils # (Auto) 0 10 ^3/uL (0-0.2) Nucleated Red Blood Cells 0.1 % Sodium Level 139 mmol/L (136-145) Potassium Level 3.9 mmol/L (3.5-5.1) Chloride Level 102 mmol/L (98-107) Carbon Dioxide Level 27 mmol/L (20-31) Anion Gap 10 (5-15) Blood Urea Nitrogen 19 mg/dL (9-23) Creatinine 1.09 mg/dL (0.550-1.02) Glomerular Filtration Rate Calc 55 mL/min (>90) BUN/Creatinine Ratio 17.4 (10.0-20.0) Serum Glucose 107 mg/dL (74-106) Calcium Level 9.8 mg/dL (8.7-10.4) Total Bilirubin 0.6 mg/dL (0.2-1.0) Aspartate Amino Transferase (AST) 54 U/L (13-40) Alanine Aminotransferase (ALT) 44 U/L (7-40) Alkaline Phosphatase 131 U/L (46-116) Total Protein 6.2 g/dL (5.7-8.2) Albumin 3.8 g/dL (3.2-4.8) Urine Color Light-yellow (Yellow) Urine Clarity Clear (Clear) Urine pH 7.0 (5.0-9.0) Urine Specific [place] 1.010 (1.001-1.035) Urine Protein Negative (Negative) Urine Ketones Negative (Negative) Urine Blood Negative /uL (Negative) Urine Nitrite Negative (Negative) Urine Bilirubin Negative (Negative) Urine Urobilinogen Normal mg/dL (Negative) Urine Leukocyte Esterase Negative /uL (Negative) Urine RBC <1 /hpf (0 - 4) Urine WBC 1 /hpf (0 - 5) Urine Squamous Epithelial Cells Few /hpf (<5) Urine Bacteria None seen /hpf (None Seen) Urine Hyaline Casts Mod /lpf (0 - 2) Urine Glucose Normal mg/dL (Normal) Influenza Type A Antigen Negative (Negative) Influenza Type B Antigen Negative (Negative) SARS-CoV-2 Antigen (Rapid) Positive (NEGATIVE) Troponin I High Sensitivity < 3 ng/L (</=34) Test 09/08/24 02:34 B-Type Natriuretic Peptide 49.51 pg/mL (0-100) Other Laboratory Tests 09/09/24 05:01 Condition at Discharge: Fair Discharge Disposition: Home Discharge Instruct/Medications Diet: Cardiac 2g Na,low cholest Activity: No Restrictions, As Tolerated Discharge Statement: "Patient was advised to return to the ER or call 911 if any headaches, dizziness, shortness of breath, chest pain, abdominal pain, bleeding, fevers, or worsening of medical condition. Patient was counseled about treatment plan, medications, possible side effects, patientverbalized understanding. All questions were answered to the best of my ability. This discharge took greater then 30 minutes in planning, reviewing documentation, counseling the patient, and discussing with other team members." ASSESSMENT ASSESSMENT Assessment Date of Service: Sep 10, 2024 Billing Provider: ANIKA RIOS DO Common Visit Codes: [id number] DISCH DAY >30min ANIKA RIOS DO Sep 10, 2024 12:01
[2024-09-10 13:00] VITALS: BP 151/77; PULSE 63; RESP 18; TEMP 98.7; O2SAT 95
[2024-09-10 13:19] VITALS: BP 120/47; TEMP 36.5
--- NOTE | 2024-09-10 16:36 | DVHPN2 ---
Progress Note - Dictate Date Seen: Sep 10, 2024 Medical Necessity Reason Pt with a Central, PICC or Fol: No Subjective Patient seen and examined at bedside. Breathing comfortably on room air. Overnight events reviewed. vital signs Vital Sign Date Time Temp Pulse Resp B/P (MAP) Pulse Ox O2 Delivery O2 Flow Rate FiO2 09/10/24 13:19 36.5 09/10/24 13:00 63 18 151/77 (101) 95 09/10/24 10:15 Room Air* 0 21 Total Intake and Output 09/09/24 09/09/24 09/10/24 15:00 23:00 07:00 Intake Total 600 ml 720 ml 150 ml Balance 600 ml 720 ml 150 ml objective Gen.: Patient lying in bed in no apparent distress. Breathing on room air. Head: Normocephalic, atraumatic. Eyes: EOMI/PERRLA. Ears: Normal hearing. Normal anatomy. Neck/trachea: Trachea midline, supple. Nose: Normal external anatomy. Mouth: Moist mucous membranes. Chest: Decreased air entry bilaterally. No wheezing or rhonchi. Cardiovascular: Positive S1, positive S2. Regular rate and rhythm. Abdomen: Positive bowel sounds in all 4 quadrants. Soft, non-tender, non- distended. : Deferred. Rectal: Deferred. Skin: Warm, dry. Intact. Extremities: 2+ radial pulses bilaterally. No lower extremity edema. Neuro: Awake, alert, oriented x3. No gross motor or sensory deficits. Cranial nerves II through XII intact. Gait not assessed. laboratory and microbiology Laboratory Tests 09/09/24 05:01 Test 09/09/24 05:01 Range/Units Serum Glucose 107 H 74-106 mg/dL Assessment/Plan Impression: Hypoxia COPD exacerbation COVID-19 Hx of nicotine dependence Obstructive sleep apnea Events: On room air Supplemental oxygen PRN Continue bronchodilators Complete steroid course Continue antibiotics Antitussive for cough Supportive care. Diurese w/ Lasix as tolerated Monitor renal function Monitor ins and outs Patient is stable for discharge from the pulmonary standpoint. Labs and imaging reviewed. Rest of plan as noted below. Plan: Supplemental oxygen PRN Titrate to keep O2 sats above 92%. Chest x-ray reviewed, demonstrated no acute opacities, pleural effusion or pneumothorax. Continue bronchodilators. Continue antibiotics IV steroids Antitussive PRN Incentive spirometry Diurese to euvolemia Monitor renal function. Monitor electrolytes. Supplement as necessary. Monitor ins and outs. GI prophylaxis- Protonix DVT prophylaxis. Prognosis: Guarded given patient's multiple co-morbidities. Rest of plan per hospitalist and other consultants. Thank you, Dr. Mondragon, for allowing me to participate in this patient's care. Further recommendations will depend on the patient's clinical course. Please do not hesitate to contact me if you have any questions or concerns. This medical document was created using an electronic medical record system with [employer] dictation system. Although these documentations are being carefully reviewed, there may still be some phonetic and typographical changes. The errors are purely typographical, due to imperfection on the software program, and do not reflect any compromise in the patient's medical care. Plan discussed with: Patient, Other (RICARDO Galvez) BETHANY RICE MD Sep 10, 2024 16:36
== END 2024-09-10 14:10 | disposition home or self-care (01) | DRG 177 ==
LOC: ER 01:43 → OVERFLOW 06:18 → CENTRAL 13:39
PROVIDERS: ADMIT Internal Medicine; ATTEND Internal Medicine
DX: U07.1 COVID-19 (principal); I50.33 Acute on chronic diastolic (congestive) heart failure; J12.82 Pneumonia due to coronavirus disease 2019; J96.21 Acute and chronic respiratory failure with hypoxia; J44.1 Chronic obstructive pulmonary disease with (acute) exacerbation; J44.0 Chronic obstructive pulmonary disease with (acute) lower respiratory infection; Z68.42 Body mass index [BMI] 45.0-49.9, adult; I13.0 Hypertensive heart and chronic kidney disease with heart failure and stage 1 through stage 4 chronic kidney disease, or unspecified chronic kidney disease; F41.9 Anxiety disorder, unspecified; I25.10 Atherosclerotic heart disease of native coronary artery without angina pectoris; E78.00 Pure hypercholesterolemia, unspecified; N18.31 Chronic kidney disease, stage 3a; J40 Bronchitis, not specified as acute or chronic; J98.4 Other disorders of lung; E66.01 Morbid (severe) obesity due to excess calories; G47.33 Obstructive sleep apnea (adult) (pediatric); Z95.5 Presence of coronary angioplasty implant and graft; Z87.891 Personal history of nicotine dependence; Z91.041 Radiographic dye allergy status; Z82.5 Family history of asthma and other chronic lower respiratory diseases
CPT/HCPCS: 36415; 71045; 80048; 80053; 81001; 83880; 84484; 85025; 87081; 87426; 87804; 93005; 93306; 94640; 96365; 96375; G0378